=== PATIENT | female | born 2000 | race Caucasian/White ===

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

== ENCOUNTER 2019-08-07 16:22 | Emergency (ER) | payer BC ==
[2019-08-07 16:53] VITALS: BP 122/73
[2019-08-07 16:57] LABS: Influenza A Molecular Negative (Negative); Influenza B Molecular Negative (Negative)
--- NOTE | 2019-08-07 17:31 | UC ---
Abdominal Pain Female HPI - HPI Summary HPI Summary: PATIENT COMPLAINS OF SEVERAL DAYS OF NAUSEA BUT NO VOMITING. STATES SHE HAS HAD FREQUENT STOOLS THAT HAVE BEEN SOFT BUT NOT WATERY. NO FEVER. NO URI SYMPTOMS. APPETITE HAS BEEN DOWN. - History of Current Complaint Chief Complaint: UCGeneralIllness Stated Complaint: NAUSEA, DIZZINESS Time Seen by Provider: 08/07/19 16:34 Hx Obtained From: Patient Hx Last Menstrual Period: years ago Onset/Duration: Gradual Onset, Lasting Days, Still Present Severity Initially: Moderate Severity Currently: Moderate Pain Intensity: 0 Pain Scale Used: 0-10 Numeric Location: Discrete At: RUQ Radiates: No Character: Sharp Aggravating Factor(s): Nothing Alleviating Factor(s): Nothing Associated Signs and Symptoms: Positive: Decreased Appetite, Nausea, Diarrhea - SOFT STOOLS. Negative: Fever, Back Pain, Urinary Symptoms, Vomiting Allergies/Adverse Reactions: Allergies Allergy/AdvReac Type Severity Reaction Status Date / Time No Known Allergies Allergy Verified 08/07/19 16:53 Home Medications: Home Medications Escitalopram * [Lexapro 5 mg (NF)] 5 mg PO DAILY 08/07/19 [History Confirmed ] PMH/Surg Hx/FS Hx/Imm Hx - Additional Past Medical History Additional PMH: ALLERGIES - Surgical History Surgical History: None - Family History Known Family History: Negative: Cardiac Disease, Hypertension, Diabetes - Social History Alcohol Use: Occasionally Substance Use Type: Marijuana Substance Use Comment - Amount & Last Used: occasionally Smoking Status (MU): Never Smoked Tobacco - Immunization History Most Recent Influenza Vaccination: none Vaccination Up to Date: Yes Review of Systems All Other Systems Reviewed And Are Negative: Yes Constitutional: Positive: Negative Respiratory: Positive: Negative Cardiovascular: Positive: Negative Gastrointestinal: Positive: Abdominal Pain, Nausea. Negative: Vomiting Genitourinary: Positive: Negative Physical Exam Triage Information Reviewed: Yes Appearance: Well-Appearing, No Pain Distress, Well-Nourished Vital Signs: Initial Vital Signs Temp 99.2 F 08/07/19 16:51 Pulse 67 08/07/19 16:51 Resp 16 08/07/19 16:51 BP 122/73 08/07/19 16:51 Pulse Ox 98 08/07/19 16:51 Laboratory Tests 08/07/19 08/07/19 08/07/19 16:45 17:12 17:15 POC Urine Color Light yellow POC Urine Clarity Slightly cloudy POC Urine pH 7.0 POC Ur Specif [place] 1.025 POC Urine Protein Negative POC Ur Glucose (UA) Negative POC Urine Ketones Negative POC Urine Blood Negative POC Urine Nitrite Negative POC Urine Bilirubin Negative POC Urine Urobilinogen 0.2 POC U Leukocyte Esteras Negative POC Ur Test Negative Influenza A (Rapid) Negative Influenza B (Rapid) Negative Vital Signs Reviewed: Yes Eyes: Positive: Conjunctiva Clear ENT: Positive: Hearing grossly normal Neck: Positive: Supple Respiratory Exam: Normal Cardiovascular Exam: Normal Abdomen Description: Positive: Soft, Other: - RUQ TENDERNESS, NEG BUTTERFIELD'S. NO REBOUND OR RIGIDITY. Negative: CVA Tenderness (R), CVA Tenderness (L), Distended, Guarding Bowel Sounds: Positive: Present Musculoskeletal: Positive: No Edema Neurological: Positive: Alert Psychological: Positive: Age Appropriate Behavior Skin: Negative: Rashes Abd Pain Female Course/Dx - Course Course Of Treatment: FLU SWAB NEGATIVE. URINE DIP UNREMARKABLE. PATIENT PRESENTING WITH SEVERAL DAYS OF NAUSEA AND FREQUENT, SOFT STOOLS WITH UPPER ABDOMINAL DISCOMFORT. RIGHT UPPER QUADRANT ULTRASOUND ALSO UNREMARKABLE. SYMPTOMS MOST LIKELY DUE TO AN ACUTE GASTROENTERITIS AND SYMPTOMS SHOULD RESOLVE ON THEIR OWN OVER THE NEXT FEW DAYS. ADVISED TO STAY WELL-HYDRATED. GO TO THE ER WITHOUT FAIL IF SYMPTOMS WORSEN. ZOFRAN NEEDED. - Differential Dx/Diagnosis Provider Diagnosis: Gastroenteritis Discharge ED - Sign-Out/Discharge Documenting (check all that apply): Patient Departure All imaging exams completed and their final reports reviewed: Yes - Discharge Plan Condition: Stable Disposition: HOME Prescriptions: Ondansetron ODT TAB* [Zofran Odt TAB*] 4 mg PO Q6H PRN #20 tab.odt PRN Reason: Nausea/Vomiting Patient Education Materials: Gastroenteritis (ED) Referrals: [facility] [Provider Group] - If Needed Additional Instructions: FLU SWAB NEGATIVE. URINE TEST UNREMARKABLE. RIGHT UPPER QUADRANT/GALLBLADDER ULTRASOUND UNREMARKABLE. YOUR SYMPTOMS ARE LIKELY DUE TO A VIRAL GASTROENTERITIS AND SHOULD RESOLVE ON THEIR OWN WITH TIME. GASTROENTERITIS: You have gastroenteritis ("intestinal flu"). This disease is usually caused by a virus. There is no specific treatment. The disease will end by itself. For now, the main danger is dehydration. Give clear liquids. Examples include Pedialyte, Gatorade, clear broth, juices, flat sodas, and jello water. Medications may be prescribed by the physician for special cases. Once tolerated, the clear liquid diet may be supplemented with rice, cereal, toast, applesauce, or bananas. GO TO THE [facility] WITHOUT FAIL if vomiting increases or blood appears in the bowel movement or vomitus; if you fail to improve, or if signs of dehydration occur (tongue and mouth become dry, lethargy). ENSURE ADEQUATE HYDRATION. CLEAR LIQUIDS, BLAND DIET. AVOID CAFFEINE, DAIRY, GREASY, SPICY FOODS. ONCE YOU ARE TOLERATING CLEAR LIQUIDS YOU CAN ADVANCE TO SIMPLE, BLAND FOODS. GO TO THE ER WITHOUT FAIL IF YOU DEVELOP WORSENING PAIN, FEVER, GI BLEED, INABILITY TO EAT/DRINK OR ANY OTHER CONCERNING SYMPTOMS. - Billing Disposition and Condition Condition: STABLE Disposition: Home
== END 2019-08-07 18:45 | disposition home or self-care (01) ==
LOC: UCEAST 16:22
DX: K52.9 Noninfective gastroenteritis and colitis, unspecified (principal); R10.9 Unspecified abdominal pain; R11.0 Nausea; R42 Dizziness and giddiness
CPT/HCPCS: 76705; 81003; 84702; 99212; G0463

== ENCOUNTER 2019-08-26 21:14 | Emergency (ER) | payer SELFPAY ==
--- NOTE | 2019-08-26 21:40 | UC ---
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 Following that she ate fries at [employer] as well as a bag of chips. She has persistent nausea. No fever, no known infectious contacts. States that past marijuana use has not made her feel this way, does not think that shere was a difference in what she had today. - History of Current Complaint Chief Complaint: UCGeneralIllness Stated Complaint: DIZZY, VOMITING Time Seen by Provider: 08/26/19 21:29 Hx Obtained From: Patient Hx Last Menstrual Period: no period Onset/Duration: Sudden Onset, Lasting Hours - about 2 Timing: Intermittent Episodes Lasting: - minutes Onset Severity: Moderate Current Severity: Mild Pain Intensity: 0 Associated Signs & Symptoms: Negative: Abdominal Pain, Back Pain - Allergy/Home Medications Allergies/Adverse Reactions: Allergies Allergy/AdvReac Type Severity Reaction Status Date / Time No Known Allergies Allergy Verified 08/26/19 21:21 Home Medications: Home Medications NK [No Home Medications Reported] 08/26/19 [History Confirmed 08/26/19] PMH/Surg Hx/FS Hx/Imm Hx Previously Healthy: Yes - overweight - Surgical History Surgical History: None - Family History Known Family History: Positive: Diabetes - grandmother Negative: Cardiac Disease, Hypertension - Social History Occupation: Student Lives: Dormitory/Roommates Alcohol Use: None Substance Use Type: Marijuana Substance Use Comment - Amount & Last Used: occasionally Smoking Status (MU): Never Smoked Tobacco - Immunization History Most Recent Influenza Vaccination: none Vaccination Up to Date: Yes Review of Systems All Other Systems Reviewed And Are Negative: Yes Constitutional: Positive: Fatigue Skin: Positive: Negative Eyes: Negative: Blurred Vision, Diplopia ENT: Negative: Sore Throat, Ear Ache Respiratory: Negative: Cough Cardiovascular: Negative: Palpitations, Chest Pain Gastrointestinal: Positive: Vomiting, Nausea. Negative: Diarrhea - normal stool earlier today. Genitourinary: Positive: Negative, Other - denies concerns for , uses nexplanon Motor: Positive: Negative Neurovascular: Positive: Negative Musculoskeletal: Positive: Negative Neurological/Mental Status: Positive: Negative Psychological: Positive: Negative Is Patient Immunocompromised?: No Physical Exam Triage Information Reviewed: Yes Appearance: No Pain Distress, Ill-Appearing - looks pale and mildly unwell, Obese Vital Signs: Initial Vital Signs Temp 97.5 F 08/26/19 21:22 Pulse 107 08/26/19 21:22 Resp 16 08/26/19 21:22 BP 109/58 08/26/19 21:22 Pulse Ox 100 08/26/19 21:22 Eye Exam: Other - ROSCOE, normal eom without nystagmus. Eyes: Positive: Conjunctiva Clear ENT: Positive: Pharynx normal, TMs normal Neck: Positive: Supple, Nontender, No Lymphadenopathy Respiratory: Positive: Lungs clear, Normal breath sounds Cardiovascular: Positive: RRR, No Murmur Abdomen Description: Positive: Nontender, No Organomegaly, Soft Bowel Sounds: Positive: Present Musculoskeletal Exam: Normal Neurological: Positive: Alert, Muscle Tone Normal Psychological Exam: Normal Skin Exam: Normal Course/Dx - Course Course Of Treatment: Overall stable, discussed possible viral versus related to marijuana use, possible food borne illness. Suggested zofran followed by hydration and follow up dependent on clinical course. - Differential Dx - Multi-Symptom Differential Diagnoses: Other - viral syndrome, nausea related to marijuana use. - Diagnoses Provider Diagnosis: Viral syndrome Discharge ED - Sign-Out/Discharge Documenting (check all that apply): Patient Departure All imaging exams completed and their final reports reviewed: No Studies - Discharge Plan Condition: Stable Disposition: HOME Patient Education Materials: Acute Nausea and Vomiting (ED) Referrals: No Primary Care Phys,NOPCP [Primary Care Provider] - Additional Instructions: It is possible that you have a viral illness, or that the vomiting is related to the food intake you had tonight. You have receved a dose of ondansetron here, which should decrease the nausea. Take sips of clear fluid, and follow up with [facility] if you continue to feel unwell. If you have persistent vomiting tonight, develop a headache or have onset of abdominal pain, please proceed to the emergency room for evaluation. - Billing Disposition and Condition Condition: STABLE Disposition: Home
[2019-08-26] MEDS ORDERED: Ondansetron ODT TAB* 4 MG PO ONE (21:50)
[2019-08-26 23:20] VITALS: BP 109/58
== END 2019-08-26 22:03 | disposition home or self-care (01) ==
LOC: UCEAST 21:14
DX: B34.9 Viral infection, unspecified (principal); R53.83 Other fatigue; R11.2 Nausea with vomiting, unspecified; E66.9 Obesity, unspecified
CPT/HCPCS: 99212; A9270-GY; G0463

== ENCOUNTER 2020-09-02 12:16 | Inpatient (IN) ==
[2020-09-02] MEDS ORDERED: cefTRIAXone 1 gm/50 mL NS BAG 1 GM/50 ML BAG IV ONE (14:22)
[2020-09-02] MEDS ORDERED: Ondansetron 4 mg VIAL 2 MG/ML 2 ml VIAL IV ONE (14:22)
[2020-09-02 14:24] LABS: Hematocrit 37 % (35-47); Hemoglobin 12.4 g/dL (12.0-16.0); Mean Corpuscular HGB Conc 33 g/dL (31-36); Mean Corpuscular Hemoglobin 28 pg (27-31); Mean Corpuscular Volume 83 fL (80-97); Mean Platelet Volume 7.8 fL (7.4-10.4); Platelet Count 396 10^3/uL (150-450); Red Blood Count 4.51 10^6 /uL (3.70-4.87); Red Cell Distribution Width 14 % (10-15); White Blood Count 25.3 10^3/uL (3.5-10.8)
[2020-09-02 14:46] LABS: ALT 11 U/L (7-52); AST 12 U/L (13-39); Albumin 3.9 g/dL (3.2-5.2); Alkaline Phosphatase 75 U/L (34-104); Anion Gap 10 mmol/L (2-11); BUN/Creatinine Ratio 6.9 (8-20); Blood Urea Nitrogen 5 mg/dL (6-24); C Reactive Protein 254.12 mg/L (<8.01); CO2 Carbon Dioxide 20 mmol/L (22-32); Calcium 9.2 mg/dL (8.6-10.3); Chloride 102 mmol/L (101-111); EGFR African American 123.7 (>60); EGFR Non-African American 102.3 (>60); Globulin 3.8 g/dL (2-4); Glucose 108 mg/dL (70-100); Lipase < 10 U/L (11.0-82.0); Potassium 3.5 mmol/L (3.5-5.0); Sodium 132 mmol/L (135-145); Total Protein 7.7 g/dL (6.4-8.9)
[2020-09-02 14:49] LABS: HCG Pregnancy 0.61 mIU/mL
[2020-09-02 14:56] LABS: ABS Basophils 0.1 10^3/ul (0-0.2); ABS Lymphocytes 1.2 10^3/ul (1.0-4.8); ABS Monocytes 2.2 10^3/ul (0-0.8); ABS Neutrophils 21.8 10^3/ul (1.5-7.7); Eosinophil % 0.1 %; Lymphocyte % 4.8 %
[2020-09-02] MEDS: NS 0.9% 1000 ml BAG 3,000 ML IV ONE (15:03)
[2020-09-02 16:51] LABS: Urine Appearance Cloudy; Urine Bilirubin Negative (Negative); Urine Blood 1+ (Negative); Urine Color Yellow; Urine Glucose Negative (Negative); Urine Ketones Trace (Negative); Urine Nitrite Negative (Negative); Urine Protein Negative (Negative); Urine Specific Gravity 1.008 (1.010-1.030); Urine Urobilinogen Negative (Negative)
[2020-09-02 17:02] LABS: Urine Bacteria Absent (Absent); Urine Red Blood Cell 1+(3-5/hpf) (Absent); Urine Squamous Epithelial Cell Present (Absent); Urine White Blood Cell 1+(6-10/hpf) (Absent)
[2020-09-02] MEDS: NS 0.9% w/ 20 Meq KCL 1000 ml 1,000 ML IV SCH (17:55)
[2020-09-02 19:34] LABS: Magnesium 1.7 mg/dL (1.9-2.7)
[2020-09-02] MEDS: Heparin 5000 UNITS/ML 1 mL VIAL SUBCUT SCH (20:12)
[2020-09-03] MEDS: NS 0.9% w/ 20 Meq KCL 1000 ml 1,000 ML IV SCH (03:53)
[2020-09-03 07:00] LABS: BUN/Creatinine Ratio 5.2 (8-20); Calcium 9.1 mg/dL (8.6-10.3); EGFR African American 114.5 (>60); EGFR Non-African American 94.6 (>60); Potassium 3.7 mmol/L (3.5-5.0)
[2020-09-03 07:04] LABS: Hematocrit 38 % (35-47); Hemoglobin 12.4 g/dL (12.0-16.0); Mean Corpuscular HGB Conc 32 g/dL (31-36); Mean Corpuscular Hemoglobin 27 pg (27-31); Mean Corpuscular Volume 85 fL (80-97); Mean Platelet Volume 7.9 fL (7.4-10.4); Platelet Count 350 10^3/uL (150-450); Red Blood Count 4.52 10^6 /uL (3.70-4.87); Red Cell Distribution Width 14 % (10-15)
[2020-09-03 07:54] LABS: ABS Basophils 0.1 10^3/ul (0-0.2); ABS Eosinophils 0.1 10^3/ul (0-0.6); ABS Lymphocytes 2.4 10^3/ul (1.0-4.8); ABS Monocytes 1.9 10^3/ul (0-0.8); ABS Neutrophils 14.5 10^3/ul (1.5-7.7); Eosinophil % 0.5 %; Lymphocyte % 12.9 %
[2020-09-03] MEDS: Venlafaxine XR 75 mg PO SCH (09:21)
[2020-09-03] MEDS: Cholecalciferol (VIT D3) 1,000 unit TAB PO SCH (09:21)
[2020-09-03] MEDS: Heparin 5000 UNITS/ML 1 mL VIAL SUBCUT SCH ×2 (09:22→19:20)
[2020-09-03] MEDS: Ondansetron 4 mg VIAL 2 MG/ML 2 ml VIAL IV PRN ×2 (11:12→19:22)
[2020-09-03] MEDS ORDERED: Magnesium Sulfate 2 gm BAG 2 GM/50 ML BAG IVPB ONE (14:58)
[2020-09-03] MEDS ORDERED: cefTRIAXone 1 gm/50 mL NS BAG 1 GM/50 ML BAG IVPB SCH (16:00)
[2020-09-04 08:08] VITALS: BP 128/77
[2020-09-04] MEDS: Heparin 5000 UNITS/ML 1 mL VIAL SUBCUT SCH (09:20)
[2020-09-04] MEDS: Cholecalciferol (VIT D3) 1,000 unit TAB PO SCH (09:22)
[2020-09-04] MEDS: Venlafaxine XR 75 mg PO SCH (09:22)
[2020-09-04 10:15] LABS: ABS Basophils 0.1 10^3/ul (0-0.2); ABS Eosinophils 0.2 10^3/ul (0-0.6); ABS Lymphocytes 2.3 10^3/ul (1.0-4.8); ABS Monocytes 0.9 10^3/ul (0-0.8); Eosinophil % 1.7 %; Hematocrit 34 % (35-47); Hemoglobin 11.5 g/dL (12.0-16.0); Lymphocyte % 16.7 %; Mean Corpuscular HGB Conc 34 g/dL (31-36); Mean Corpuscular Hemoglobin 28 pg (27-31); Mean Corpuscular Volume 82 fL (80-97); Mean Platelet Volume 7.5 fL (7.4-10.4); Platelet Count 389 10^3/uL (150-450); Red Blood Count 4.19 10^6 /uL (3.70-4.87); Red Cell Distribution Width 14 % (10-15); White Blood Count 13.5 10^3/uL (3.5-10.8)
[2020-09-04 10:33] LABS: C Reactive Protein 293.39 mg/L (<8.01); Magnesium 2.4 mg/dL (1.9-2.7)
== END 2020-09-04 12:15 | disposition home or self-care (01) | DRG 720 ==
LOC: ED 12:16 → MED 17:54
PROVIDERS: ADMIT Internal Medicine; ATTEND Internal Medicine